=== PATIENT | female | born 1950 | race Caucasian/White ===

== ENCOUNTER 2021-06-10 16:27 | Emergency (ER) | payer OTHER, MEDICAID, SELFPAY ==
[~2021-06-10] VITALS: Ht 152.4 cm; Wt 47.2 kg
[2021-06-10 19:49] LABS: EOSINOPHILS % (AUTO) 0.8 % (0.0-4.0); LYMPHOCYTES # (AUTO) 1.3 K/uL (1.0-5.5); LYMPHOCYTES % (AUTO) 35.7 % (20.5-51.5); MEAN CORPUSCULAR HEMOGLOBIN 28 pg (27-31); MEAN CORPUSCULAR HGB CONC 32 % (32-36); MEAN CORPUSCULAR VOLUME 86 fL (79.0-98.0); MONOCYTES # (AUTO) 0.4 K/uL (0.0-1.0); MONOCYTES % (AUTO) 11.4 % (1.7-9.3); NEUTROPHILS # (AUTO) 1.8 K/uL (1.8-7.7); NEUTROPHILS % (AUTO) 51.1 % (40.0-70.0); PLATELET COUNT (AUTO) 227 K/uL (130-430); RED BLOOD CELL COUNT(AUTO) 4.65 MIL/uL (4.2-6.2); WHITE BLOOD COUNT (AUTO) 3.6 K/uL (4.8-10.8)
[2021-06-10 20:00] LABS: ANION GAP 6 (5-15); CALCIUM 8.8 mg/dL (8.4-11.0); CHLORIDE 100 mmol/L (98-107); CREATININE 1.03 mg/dL (0.55-1.30); GLUCOSE 92 mg/dL (70-99); POTASSIUM 4.7 mmol/L (3.5-5.1); SODIUM SERUM 134 mmol/L (136-145); UREA NITROGEN, BLOOD 16 mg/dL (8-21)
[2021-06-10 20:15] LABS: ALANINE AMINOTRANSFERASE 31 U/L (12-78); ALBUMIN 3.6 g/dL (3.4-4.8); ASPARTATE AMINOTRANSFERASE 31 U/L (10-37); TOTAL BILIRUBIN 0.2 mg/dL (0.0-1.0)
[2021-06-10 21:50] VITALS: BP_SYST 104
--- NOTE | 2021-06-10 21:50 | NUR ---
1830- See by DONELL Arenas in waiting room.
--- NOTE | 2021-06-10 21:50 | NUR ---
Patient accompanied by family, presenting with gradual onset of headache that began today. Patient reports falling 2 days ago and lacerated her occipital scalp. Headache is mild to moderate, non radiating. Patient states she has low blood pressure which is not treated by medication. Otherwise, denies fever, chills, chest pain, LOC, neck pain, abdominal or back pain, numbness, focal weakness, fatigue, nausea, vomiting. Patient breathing easy, respirations even unlabored. Patient ambulatory with steady gait.
--- NOTE | 2021-06-10 22:00 | NUR ---
DONELL SMITH cleaning scalp and applying bacitracin to cuts.
[2021-06-10 22:15] VITALS: BP_SYST 104
--- NOTE | 2021-06-10 22:15 | NUR ---
Patient given written and verbal discharge instructions and verbalizes understanding. ER MD discussed with patient the results and treatment provided. Patient in stable condition. Rx of Motrin and Triplett given. Patient educated on pain management and to follow up with PMD. Pain Scale 0/10. Opportunity for questions provided and answered.
== END 2021-06-10 22:15 | disposition home or self-care (01) ==
LOC: SED 16:27
DX: S01.01XD Laceration without foreign body of scalp, subsequent encounter (principal); S09.90XA Unspecified injury of head, initial encounter; R55 Syncope and collapse; X58.XXXA Exposure to other specified factors, initial encounter; Y93.9 Activity, unspecified; Y92.9 Unspecified place or not applicable; Y99.9 Unspecified external cause status
CPT/HCPCS: 36415; 70450-TC; 71045; 76376; 80053; 83605; 84484; 85025; 99285